=== PATIENT | male | born 1985 | race Caucasian/White ===

== ENCOUNTER 2019-10-28 11:53 | Emergency (ER) | payer MEDICAID, OTHER ==
[~2019-10-28] VITALS: Ht 160 cm; Wt 68.0 kg
[2019-10-28 12:46] LABS: CLARITY URINE CLOUDY (CLEAR); COLOR URINE YELLOW (YELLOW); KETONES URINE NEGATIVE (NEGATIVE); LEUKOCYTE ESTERASE URINE 2+ (NEGATIVE); NITRITE URINE NEGATIVE (NEGATIVE); OCCULT BLOOD URINE NEGATIVE (NEGATIVE); PH URINE 5.5 (4.5-8.0); PROTEIN URINE 1+ (NEGATIVE); SPECIFIC GRAVITY URINE 1.023 (1.005-1.030)
[2019-10-28] MEDS ORDERED: CEFTRIAXONE SODIUM 250 MG/VIAL IM ONE (13:45)
[2019-10-28] MEDS ORDERED: DOXYCYCLINE HYCLATE 100MG CAPSULE PO ONE (13:45)
[2019-10-28 13:50] VITALS: BP 141/92
== END 2019-10-28 14:08 | disposition home or self-care (01) ==
LOC: ER 12:16
DX: N45.1 Epididymitis (principal); Z98.890 Other specified postprocedural states
CPT/HCPCS: 76870; 81003; 87077; 87086; 87186; 93976; 96372; 99284; J0696

== ENCOUNTER 2019-10-28 20:56 | Inpatient (IN) | payer MEDICAID, OTHER ==
[~2019-10-28] VITALS: Ht 160 cm; Wt 70.3 kg
[2019-10-28] MEDS ORDERED: ACETAMINOPHEN 325MG TABLET PO STA (21:33)
[2019-10-28] MEDS ORDERED: CEFTRIAXONE 1 G PREMIX 50 ML IV ONE (21:45)
[2019-10-28] MEDS ORDERED: SODIUM CHLORIDE 0.9% 1000ML BAG (SEPSIS BOLUS) IV ONE (21:45)
[2019-10-28] MEDS ORDERED: PIPERACILLIN/TAZOBACTAM 3.375GM/50ML PREMIX IV SCH (22:00)
[2019-10-28] MEDS ORDERED: LEVOFLOXACIN 500MG PREMIX 100 ML IV ONE (22:00)
[2019-10-28] MEDS ORDERED: ACETAMINOPHEN 325MG TABLET PO ONE (22:15)
[2019-10-28 22:29] LABS: BASOPHILS % 0.2 % (0.0-2.0); EOSINOPHILS % 0.2 % (0.0-5.0); HEMATOCRIT. 51.6 % (42.0-52.0); HEMOGLOBIN. 17.4 g/dL (14.0-18.0); LYMPHOCYTES % 9.1 % (20.0-50.0); MEAN CORPUSCULAR HEMOGLOBIN 29.7 pg (28.0-32.0); MEAN PLATELET VOLUME 7.9 fl (7.4-10.4); MONOCYTES % 5.4 % (2.0-8.0); NEUTROPHILS % 85.1 % (40.0-76.0); PLATELET 253 x1000/uL (130-400); RED BLOOD CELL COUNT 5.87 mill/uL (4.7-6.1)
[2019-10-28 22:35] LABS: INR 0.9; PROTHROMBIN TIME 9.9 sec (9.6-11.0)
[2019-10-28 22:37] LABS: CHLORIDE 101 mEq/L (98-107)
[2019-10-28 22:46] LABS: CREATINE KINASE 482 IU/L (39-308)
[2019-10-28 23:19] LABS: CLARITY URINE CLEAR (CLEAR); COLOR URINE YELLOW (YELLOW); KETONES URINE NEGATIVE (NEGATIVE); LEUKOCYTE ESTERASE URINE 1+ (NEGATIVE); NITRITE URINE NEGATIVE (NEGATIVE); OCCULT BLOOD URINE NEGATIVE (NEGATIVE); PROTEIN URINE 1+ (NEGATIVE); SPECIFIC GRAVITY URINE 1.025 (1.005-1.030)
[2019-10-29] VITALS (9 sets, daily range): BP systolic 111–132; BP diastolic 60–94
[2019-10-29] MEDS ORDERED: KETOROLAC 15MG/ML VIAL IV ONE (01:00)
[2019-10-29] MEDS ORDERED: ACETAMINOPHEN 325MG TABLET PO PRN (09:15)
[2019-10-29] MEDS ORDERED: ONDANSETRON HCL 4MG/2ML INJ IV PRN (09:15)
[2019-10-29] MEDS: CEFTRIAXONE 1 G PREMIX 50 ML IV SCH (10:24)
[2019-10-29] MEDS: KETOROLAC 30MG/ML VIAL IV PRN ×2 (11:06→21:02)
[2019-10-29 14:55] LABS: HEPATITIS B SURFACE ANTIGEN NEGATIVE
[2019-10-29 15:25] LABS: HEPATITIS A AB IGM NEGATIVE (NEGATIVE)
[2019-10-30] VITALS (8 sets, daily range): BP systolic 103–136; BP diastolic 64–84
[2019-10-30] MEDS: KETOROLAC 30MG/ML VIAL IV PRN (08:41)
[2019-10-30] MEDS: CEFTRIAXONE 1 G PREMIX 50 ML IV SCH (10:26)
[2019-10-30] MEDS ORDERED: HYDR-4009 MT ×2 (14:10→14:11)
[2019-10-30] MEDS ORDERED: LEVO500T2 MT (14:10)
[2019-10-30 15:37] LABS: BASOPHILS % 0.2 % (0.0-2.0); EOSINOPHILS % 1.6 % (0.0-5.0); HEMATOCRIT. 43.4 % (42.0-52.0); HEMOGLOBIN. 14.7 g/dL (14.0-18.0); LYMPHOCYTES % 23.8 % (20.0-50.0); MEAN CORPUSCULAR VOLUME 88.4 fL (80.0-94.0); MEAN PLATELET VOLUME 7.7 fl (7.4-10.4); MONOCYTES % 8.6 % (2.0-8.0); NEUTROPHILS % 65.8 % (40.0-76.0); PLATELET 221 x1000/uL (130-400); RED BLOOD CELL COUNT 4.91 mill/uL (4.7-6.1)
[2019-10-30 15:41] LABS: CHLORIDE 104 mEq/L (98-107)
== END 2019-10-30 23:38 | disposition home or self-care (01) | DRG 720 ==
LOC: ER 20:56 → 5EST 10-29 01:08 → EDBEDREQTM 10-29 01:20 → EDBEDREQ 10-29 01:20 → ENRESERV 10-29 07:21
PROVIDERS: ADMIT Internal Medicine; ATTEND Internal Medicine
DX: A41.9 Sepsis, unspecified organism (principal); E87.2 Acidosis; E87.1 Hypo-osmolality and hyponatremia; N39.0 Urinary tract infection, site not specified; N43.3 Hydrocele, unspecified; R74.0 Nonspecific elevation of levels of transaminase and lactic acid dehydrogenase [LDH]
CPT/HCPCS: 36415; 71045; 80048; 80053; 81003; 82550; 83605; 83880; 84145; 84484; 85025; 86705; 86709; 87340; 93005; 96365; 99285; J0696; J1885; J1956; J2543; J7030

== ENCOUNTER 2019-12-29 03:57 | Inpatient (IN) | payer MEDICAID ==
[~2019-12-29] VITALS: Ht 160 cm; Wt 70.3 kg
[~2019-12-29 03:57] MED LIST: HYDR-4009 MT; LEVO500T2 MT
[2019-12-29] MEDS ORDERED: ACETAMINOPHEN 325MG TABLET PO STA (04:29)
[2019-12-29] MEDS ORDERED: ONDANSETRON HCL 4MG/2ML INJ IV ONE (04:45)
[2019-12-29 04:58] LABS: BASOPHILS % 0.2 % (0.0-2.0); EOSINOPHILS % 0.2 % (0.0-5.0); HEMATOCRIT. 46.1 % (42.0-52.0); HEMOGLOBIN. 15.5 g/dL (14.0-18.0); LYMPHOCYTES % 8.3 % (20.0-50.0); MEAN CORPUSCULAR VOLUME 86.1 fL (80.0-94.0); MEAN PLATELET VOLUME 8.4 fl (7.4-10.4); MONOCYTES % 5.3 % (2.0-8.0); PLATELET 240 x1000/uL (130-400); RED BLOOD CELL COUNT 5.35 mill/uL (4.7-6.1); RED CELL DISTRIBUTION WIDTH 13.8 % (11.6-14.6)
[2019-12-29 05:05] LABS: CHLORIDE 106 mEq/L (98-107)
[2019-12-29 05:09] LABS: ETHANOL BLOOD < 10 mg/dL
[2019-12-29 05:14] LABS: *AMPHETAMINES SCREEN URINE NEGATIVE (NEGATIVE); *BARBITURATES SCREEN URINE NEGATIVE (NEGATIVE)
[2019-12-29 05:15] LABS: *BENZODIAZEPINES SCREEN URINE NEGATIVE (NEGATIVE); *COCAINE SCREEN URINE NEGATIVE (NEGATIVE); METHADONE URINE SCREEN NEGATIVE (NEGATIVE); OPIATES URINE SCREEN NEGATIVE (NEGATIVE); PHENCYCLIDINE URINE SCREEN NEGATIVE (NEGATIVE)
[2019-12-29] MEDS ORDERED: SODIUM CHLORIDE 0.9% 1000ML BAG (SEPSIS BOLUS) IV ONE (05:15)
[2019-12-29] MEDS ORDERED: MORPHINE SULFATE 4 MG/ML CPJ (NOT FOR IM USE) IV ONE (05:15)
[2019-12-29 05:16] LABS: CANNABINOID URINE SCREEN NEGATIVE (NEGATIVE)
[2019-12-29 05:16] LABS: CLARITY URINE CLOUDY (CLEAR); COLOR URINE YELLOW (YELLOW); KETONES URINE NEGATIVE (NEGATIVE); LEUKOCYTE ESTERASE URINE 1+ (NEGATIVE); NITRITE URINE NEGATIVE (NEGATIVE); OCCULT BLOOD URINE NEGATIVE (NEGATIVE); PH URINE >=9.0 (4.5-8.0); PROTEIN URINE 1+ (NEGATIVE)
[2019-12-29 05:18] LABS: PROTHROMBIN TIME 10.6 sec (9.6-11.0)
[2019-12-29] MEDS ORDERED: PIPERACILLIN/TAZOBACTAM 3.375GM/50ML PREMIX IV ONE (06:00)
[2019-12-29] MEDS ORDERED: PIPERACILLIN/TAZOBACTAM 3.375 G in DEXT 5% WATER 100 ML IV SCH (07:00)
[2019-12-29 10:30] VITALS: BP 101/77
[2019-12-29] MEDS ORDERED: ACETAMINOPHEN 325MG TABLET PO PRN (12:00)
[2019-12-29] MEDS ORDERED: TRAMADOL 50MG TABLET PO PRN (12:00)
[2019-12-29] MEDS ORDERED: ONDANSETRON HCL 4MG/2ML INJ IV PRN (12:00)
[2019-12-29] MEDS: ASPIRIN 81MG TABLET PO SCH (12:56)
[2019-12-29 16:00] VITALS: BP 109/47
[2019-12-29] MEDS: LEVOFLOXACIN 500MG PREMIX 100 ML IV SCH (16:06)
[2019-12-29] MEDS: METRONIDAZOLE 500 MG PREMIX 100 ML IV SCH (18:16)
[2019-12-29 20:00] VITALS: BP 119/71
[2019-12-30] VITALS: BP 106/58
[2019-12-30] MEDS: METRONIDAZOLE 500 MG PREMIX 100 ML IV SCH ×2 (02:00→09:39)
[2019-12-30 04:00] VITALS: BP 108/58
[2019-12-30 06:34] LABS: BASOPHILS % 0.1 % (0.0-2.0); EOSINOPHILS % 0.9 % (0.0-5.0); HEMATOCRIT. 43.7 % (42.0-52.0); HEMOGLOBIN. 14.6 g/dL (14.0-18.0); MEAN CORPUSCULAR HEMOGLOBIN 29.2 pg (28.0-32.0); MEAN CORPUSCULAR VOLUME 87.6 fL (80.0-94.0); MEAN PLATELET VOLUME 8.5 fl (7.4-10.4); MONOCYTES % 5.7 % (2.0-8.0); NEUTROPHILS % 75.3 % (40.0-76.0); PLATELET 208 x1000/uL (130-400); RED BLOOD CELL COUNT 4.99 mill/uL (4.7-6.1); RED CELL DISTRIBUTION WIDTH 14.1 % (11.6-14.6)
[2019-12-30 06:42] LABS: CHLORIDE 110 mEq/L (98-107)
[2019-12-30] MEDS: ASPIRIN 81MG TABLET PO SCH (08:56)
[2019-12-30 12:00] VITALS: BP 120/79
[2019-12-30] MEDS: LEVOFLOXACIN 500MG PREMIX 100 ML IV SCH (13:22)
[2019-12-30] MEDS ORDERED: LEVO500T2 MT (15:17)
[2019-12-30 16:01] VITALS: BP 120/79
== END 2019-12-30 16:45 | disposition home or self-care (01) | DRG 720 ==
LOC: ER 03:57 → 7WST 07:05 → EDBEDREQ 07:08 → EDBEDREQTM 07:08 → EDBEDREQSVC 07:08 → ENRESERV 07:25 → 7WST 12-30 12:00
PROVIDERS: ADMIT Internal Medicine; ATTEND Internal Medicine
DX: A41.9 Sepsis, unspecified organism (principal); E87.2 Acidosis; N39.0 Urinary tract infection, site not specified; Z20.828 Contact with and (suspected) exposure to other viral communicable diseases; N45.1 Epididymitis; K52.9 Noninfective gastroenteritis and colitis, unspecified; M94.0 Chondrocostal junction syndrome [Tietze]; Z79.1 Long term (current) use of non-steroidal anti-inflammatories (NSAID); Z79.2 Long term (current) use of antibiotics; Z79.899 Other long term (current) drug therapy
CPT/HCPCS: 36415; 71045; 74176; 76870; 80048; 80053; 80305; 80320; 81003; 83605; 84145; 84484; 85025; 87077; 87186; 87635; 93005; 93976; 99291; J1956; J2270; J2405; J2543; J3490; J7030; J7060; G0480

== ENCOUNTER 2020-06-27 16:38 | Emergency (ER) | payer MEDICAID ==
[~2020-06-27] VITALS: Ht 177.8 cm; Wt 80.0 kg
[~2020-06-27 16:38] MED LIST changes: -LEVO500T2 MT
[2020-06-27] MEDS ORDERED: CETIRIZINE 10MG TABLET PO SCH (17:45)
[2020-06-27] MEDS ORDERED: ACETAMINOPHEN 325MG TABLET PO ONE (17:45)
[2020-06-27 18:10] VITALS: BP 141/90
== END 2020-06-27 18:15 | disposition home or self-care (01) ==
LOC: ER 16:46
DX: J06.9 Acute upper respiratory infection, unspecified (principal)
CPT/HCPCS: 99283

== ENCOUNTER 2020-07-01 15:33 | Emergency (ER) | payer MEDICAID ==
[~2020-07-01] VITALS: Ht 165.1 cm; Wt 60.0 kg
[2020-07-01 17:26] LABS: CLARITY URINE CLOUDY (CLEAR); COLOR URINE YELLOW (YELLOW); KETONES URINE NEGATIVE (NEGATIVE); LEUKOCYTE ESTERASE URINE 2+ (NEGATIVE); NITRITE URINE NEGATIVE (NEGATIVE); OCCULT BLOOD URINE NEGATIVE (NEGATIVE); PROTEIN URINE NEGATIVE (NEGATIVE); SPECIFIC GRAVITY URINE 1.021 (1.005-1.030); UROBILINOGEN URINE 0.2 E.U./dL (0.2-1.0)
[2020-07-01] MEDS ORDERED: HYDROCODONE/APAP 7.5/325MG 1 TAB TABLET PO ONE (18:30)
[2020-07-01 21:00] VITALS: BP 128/77
== END 2020-07-01 21:18 | disposition home or self-care (01) ==
LOC: ER 15:33
DX: N45.1 Epididymitis (principal); Z79.899 Other long term (current) drug therapy
CPT/HCPCS: 76870; 81003; 87077; 87086; 87186; 93976; 99284; Z7610

== ENCOUNTER 2020-11-06 07:43 | Emergency (ER) | payer MEDICAID ==
[~2020-11-06] VITALS: Ht 165.1 cm; Wt 68.0 kg
[2020-11-06] MEDS ORDERED: IBUPROFEN 600MG TABLET PO ONE (08:45)
[2020-11-06] MEDS ORDERED: IBUP-2029 MT (09:29)
[2020-11-06] MEDS ORDERED: CYCL10TA7 MT (09:30)
[2020-11-06 09:43] VITALS: BP 130/78
== END 2020-11-06 09:43 | disposition home or self-care (01) ==
LOC: ER 07:43
DX: R07.89 Other chest pain (principal); Z88.1 Allergy status to other antibiotic agents
CPT/HCPCS: 71101; 99283

== ENCOUNTER 2020-12-03 22:30 | Emergency (ER) | payer MEDICAID ==
[~2020-12-03] VITALS: Ht 160 cm; Wt 71.0 kg
[~2020-12-03 22:30] MED LIST changes: +CYCL10TA7 MT; +IBUP-2029 MT
[2020-12-04] MEDS ORDERED: ONDANSETRON 4MG ODT PO ONE
[2020-12-04] MEDS ORDERED: MAGNESIUM/ALUMINUM HYDROXIDE/SIMETHICONE 30ML UDC PO ONE
[2020-12-04] MEDS ORDERED: VISCOUS LIDOCAINE 2% 15 ML UDC PO ONE
[2020-12-04 00:08] LABS: BASOPHILS % 0.3 % (0.0-2.0); EOSINOPHILS % 3.8 % (0.0-5.0); HEMATOCRIT. 45.7 % (42.0-52.0); HEMOGLOBIN. 15.8 g/dL (14.0-18.0); LYMPHOCYTES % 41.4 % (20.0-50.0); MEAN CORPUSCULAR HEMOGLOBIN 29.7 pg (28.0-32.0); MEAN CORPUSCULAR VOLUME 85.8 fL (80.0-94.0); MEAN PLATELET VOLUME 8.1 fl (7.4-10.4); MONOCYTES % 7.3 % (2.0-8.0); NEUTROPHILS % 47.2 % (40.0-76.0); PLATELET 259 x1000/uL (130-400); RED BLOOD CELL COUNT 5.32 mill/uL (4.7-6.1); RED CELL DISTRIBUTION WIDTH 13.3 % (11.6-14.6)
[2020-12-04 00:11] LABS: CHLORIDE 106 mEq/L (98-107)
[2020-12-04 00:13] LABS: PROTHROMBIN TIME 10.9 sec (9.6-11.0)
[2020-12-04] MEDS ORDERED: KETOROLAC 15MG/ML VIAL IV SCH (02:30)
[2020-12-04] MEDS ORDERED: PANTOPRAZOLE 40MG DR TABLET PO SCH (02:30)
[2020-12-04] MEDS ORDERED: PANT40TA51 MT (02:31)
[2020-12-04 03:01] VITALS: BP 141/84
== END 2020-12-04 03:02 | disposition home or self-care (01) ==
LOC: ER 22:30
DX: K29.70 Gastritis, unspecified, without bleeding (principal); K76.0 Fatty (change of) liver, not elsewhere classified; Z88.3 Allergy status to other anti-infective agents; Z98.890 Other specified postprocedural states
CPT/HCPCS: 36415; 76700; 80053; 83690; 85025; 85610; 93005; 96374; 99285; J1885; Q0162

== ENCOUNTER 2021-03-28 00:52 | Emergency (ER) | payer MEDICAID ==
[~2021-03-28] VITALS: Ht 167.6 cm; Wt 69.0 kg
[~2021-03-28 00:52] MED LIST changes: +PANT40TA51 MT
[2021-03-28 00:57] VITALS: BP 132/90
[2021-03-28] MEDS ORDERED: DICYCLOMINE 10 MG/5 ML ORAL SYR PO ONE (01:30)
[2021-03-28] MEDS ORDERED: MAGNESIUM/ALUMINUM HYDROXIDE/SIMETHICONE 30ML UDC PO ONE (01:30)
[2021-03-28] MEDS ORDERED: ONDANSETRON 4MG ODT PO ONE (01:30)
[2021-03-28] MEDS ORDERED: FAMOTIDINE 20MG TABLET PO ONE (01:30)
[2021-03-28] MEDS ORDERED: VISCOUS LIDOCAINE 2% 15 ML UDC PO ONE (01:30)
[2021-03-28] MEDS ORDERED: ONDA4TAB5 MT (19:13)
== END 2021-03-28 02:12 | disposition home or self-care (01) ==
LOC: ER 01:24
DX: R11.2 Nausea with vomiting, unspecified (principal); K29.70 Gastritis, unspecified, without bleeding; Z88.3 Allergy status to other anti-infective agents; Z98.890 Other specified postprocedural states
CPT/HCPCS: 99284; Q0162

== ENCOUNTER 2021-03-28 12:49 | Emergency (ER) | payer MEDICAID ==
[~2021-03-28] VITALS: Ht 160 cm; Wt 68.0 kg
[2021-03-28] MEDS ORDERED: ONDANSETRON 4MG ODT PO ONE (17:15)
[2021-03-28] MEDS ORDERED: MAGNESIUM/ALUMINUM HYDROXIDE/SIMETHICONE 30ML UDC PO ONE (17:30)
[2021-03-28 18:51] LABS: CHLORIDE 110 mEq/L (98-107)
[2021-03-28 18:57] LABS: BASOPHILS % 0.1 % (0.0-2.0); EOSINOPHILS % 0.1 % (0.0-5.0); HEMATOCRIT. 47.9 % (42.0-52.0); HEMOGLOBIN. 16.2 g/dL (14.0-18.0); LYMPHOCYTES % 8.8 % (20.0-50.0); MEAN CORPUSCULAR HEMOGLOBIN 29.7 pg (28.0-32.0); MEAN CORPUSCULAR VOLUME 87.6 fL (80.0-94.0); MEAN PLATELET VOLUME 8.3 fl (7.4-10.4); MONOCYTES % 6.7 % (2.0-8.0); NEUTROPHILS % 84.3 % (40.0-76.0); PLATELET 257 x1000/uL (130-400); RED BLOOD CELL COUNT 5.46 mill/uL (4.7-6.1); RED CELL DISTRIBUTION WIDTH 13.5 % (11.6-14.6)
[2021-03-28] MEDS ORDERED: ONDA4TAB5 MT (19:13)
[2021-03-28 19:40] VITALS: BP 138/87
== END 2021-03-28 19:50 | disposition home or self-care (01) ==
LOC: ER 12:49
DX: A05.9 Bacterial foodborne intoxication, unspecified (principal); R11.2 Nausea with vomiting, unspecified; Z88.3 Allergy status to other anti-infective agents
CPT/HCPCS: 36415; 80053; 83735; 85025; 93005; 99283; Q0162

== ENCOUNTER 2022-11-24 12:58 | Emergency (ER) | payer BC, MEDICAID ==
[~2022-11-24] VITALS: Ht 160 cm; Wt 72.7 kg
[~2022-11-24 12:58] MED LIST changes: +CYCL10TA21 MT; -CYCL10TA7 MT; +ONDA4TAB5 MT
[2022-11-24 13:07] VITALS: PULSE 73; RESP 18
[2022-11-24 13:08] VITALS: BP 139/83; O2SAT 100
[2022-11-24 13:42] LABS: BASOPHILS % 0.4 % (0.0-2.0); EOSINOPHILS % 2.2 % (0.0-5.0); HEMATOCRIT. 43.3 % (42.0-52.0); HEMOGLOBIN. 14.7 g/dL (14.0-18.0); LYMPHOCYTES % 46.5 % (20.0-50.0); MEAN CORPUSCULAR HEMOGLOBIN 29.9 pg (28.0-32.0); MEAN CORPUSCULAR VOLUME 87.8 fL (80.0-94.0); MEAN PLATELET VOLUME 7.6 fl (7.4-10.4); MONOCYTES % 5.3 % (2.0-8.0); NEUTROPHILS % 45.6 % (40.0-76.0); PLATELET 258 x1000/uL (130-400); RED BLOOD CELL COUNT 4.94 mill/uL (4.7-6.1); RED CELL DISTRIBUTION WIDTH 13.1 % (11.6-14.6)
[2022-11-24 13:47] LABS: CHLORIDE 107 mEq/L (98-107)
[2022-11-24 15:15] VITALS: TEMP 98.3
[2022-11-24] MEDS ORDERED: ACETAMINOPHEN 325MG TABLET PO ONE (15:15)
== END 2022-11-24 18:46 | disposition home or self-care (01) ==
LOC: ER 12:58
DX: R51.9 Headache, unspecified (principal); R07.89 Other chest pain; Z20.822 Contact with and (suspected) exposure to COVID-19; Z88.1 Allergy status to other antibiotic agents; W18.30XA Fall on same level, unspecified, initial encounter; Y93.89 Activity, other specified; Y92.89 Other specified places as the place of occurrence of the external cause; Y99.8 Other external cause status
CPT/HCPCS: 36415; 70450; 71045; 71046; 80053; 85025; 87426; 87804; 93005; 99285; C9803